=== PATIENT | female | born 1980 | race American Indian/Alaskan Native ===

== ENCOUNTER 2024-06-02 09:23 | Outpatient (CLI) | payer OTHER ==
[2024-06-02 10:53] LABS: HEMATOCRIT 32.4 % (36.0-45.00); HEMOGLOBIN 10.8 g/dL (12.0-15.00); MEAN CORPUSCULAR HEMOGLOBIN 28.6 pg (27.00-32.0); MEAN CORPUSCULAR HGB CONC 33.3 g/dl (32.0-36.0); PLATELET COUNT 271 K/uL (150-450); RED BLOOD COUNT 3.77 M/uL (4.00-6.00); RED CELL DISTRIBUTION WIDTH 13.9 % (11.5-14.5)
[2024-06-02 11:17] LABS: URINE APPEARANCE Clear; URINE BILIRRUBIN Negative (NEGATIVE); URINE BLOOD Large; URINE COLOR Dark Yellow; URINE GLUCOSE Negative (NEGATIVE); URINE KETONE Negative (NEGATIVE); URINE LEUKOCYTE Trace; URINE NITRATE Negative; URINE PROTEIN 30 (NEGATIVE)
[2024-06-02 11:22] LABS: PARTIAL THROMBOPLASTIN TIME 28.3 SECONDS (22.0-34.0); PROTHROMBIN TIME 10.9 SECONDS (9.0-11.5)
[2024-06-02 11:24] LABS: URINE CAST 0.29 uL (0.0-1.40); URINE EPITHELIAL CELLS 7.1 uL (0.0-38.8); URINE RBC 5179.2 uL (0.0-20.8); URINE WBC 13.6 uL (0.0-23.2)
[2024-06-02 11:27] LABS: ALBUMIN 3.7 gm/dL (3.4-5.0); BILIRUBIN TOTAL 0.63 mg/dL (0.3-1.2); CALCIUM 8.5 mg/dL (8.5-10.1); CREATININE SERUM 0.67 mg/dL (0.55-1.02); GFR 94.76; GLOBULINA 3.7 G/DL (2.4-3.5); POTASSIUM 3.86 mEq/L (3.5-5.1); TOTAL PROTEIN 7.4 gm/dL (6.4-8.2)
== END 2024-06-02 14:03 | disposition home or self-care (01) ==
LOC: LAB 09:23
PROVIDERS: ATTEND Obstetrics & Gynecology
DX: N91.1 Secondary amenorrhea (principal); R07.9 Chest pain, unspecified; R05.9 Cough, unspecified

== ENCOUNTER 2024-06-06 12:24 | Outpatient (CLI) | payer OTHER ==
[2024-06-06] MEDS ORDERED: COZAAR50 MG PO (15:20)
[2024-06-06] MEDS ORDERED: FLUVOXAMINE MA100 M1 PO (15:30)
== END 2024-06-06 12:26 | disposition home or self-care (01) ==
LOC: MAMO-SONO 12:24
PROVIDERS: ATTEND Obstetrics & Gynecology
DX: N60.11 Diffuse cystic mastopathy of right breast (principal)

== ENCOUNTER 2024-06-06 15:27 | Inpatient (IN) | payer OTHER ==
[~2024-06-06] VITALS: Ht 172.7 cm; Wt 90.7 kg
[~2024-06-06 15:27] MED LIST: COZAAR50 MG PO
[2024-06-06] MEDS ORDERED: FLUVOXAMINE MA100 M1 PO (15:30)
[2024-06-07] MEDS ORDERED: POVIDONE-IODINE 118 ML BOTT TOP ONE (13:45)
[2024-06-07] MEDS ORDERED: CLINDAMYCIN PHOSPHATE 150 MG/ML (900mg) IV ONE (13:45)
[2024-06-07] MEDS ORDERED: SUGAMMADEX SODIUM 200 MG/2 ML VIAL IV ONE (14:08)
[2024-06-07] MEDS ORDERED: RINGERS SOLUTION,LACTATED 1,000 ML IV SCH (14:30)
[2024-06-07] MEDS ORDERED: MORPHINE SULFATE 4 MG/ML CARTRIDGE IV PRN (14:30)
[2024-06-07] MEDS ORDERED: MORPHINE SULFATE 4 MG/ML VIAL IV ONE ×2 (15:50→16:20)
[2024-06-07] MEDS ORDERED: ONDANSETRON HCL 2 MG/ML VIAL IM PRN (17:00)
[2024-06-07] MEDS ORDERED: hydrALAZINE HCL 20 MG VIAL ONE (17:39)
[2024-06-07] MEDS ORDERED: hydrALAZINE HCL 20 MG VIAL IV ONE (17:45)
[2024-06-07] MEDS ORDERED: ACETAMINOPHEN 325 MG TABLET PO SCH (18:00)
[2024-06-07] MEDS ORDERED: hydrALAZINE HCL 20 MG VIAL IV PRN (18:00)
[2024-06-07] MEDS ORDERED: LOSARTAN POTASSIUM 50 MG TABLET PO NR (18:45)
[2024-06-07] MEDS ORDERED: LOSARTAN/HYDROCHLOROTHIAZIDE 1 UDTAB TABLET PO NR (19:00)
[2024-06-07 19:38] VITALS: BP 143/76
[2024-06-08 00:23] VITALS: BP 139/76
[2024-06-08 05:00] VITALS: BP 146/76
[2024-06-08 08:26] VITALS: BP 116/62
[2024-06-08] MEDS ORDERED: ENOXAPARIN SODIUM 40 MG/0.4 ML SYRINGE SUBCUTANEO SCH (09:00)
[2024-06-08] MEDS ORDERED: LOSARTAN POTASSIUM 50 MG TABLET PO SCH ×2 (09:00)
[2024-06-08 11:12] LABS: HEMATOCRIT 30.4 % (36.0-45.00); HEMOGLOBIN 9.9 g/dL (12.0-15.00); MEAN CELL VOLUME 86.2 fL (80.00-100.00); MEAN CORPUSCULAR HEMOGLOBIN 28.1 pg (27.00-32.0); MEAN CORPUSCULAR HGB CONC 32.6 g/dl (32.0-36.0); PLATELET COUNT 278 K/uL (150-450); RED BLOOD COUNT 3.52 M/uL (4.00-6.00); RED CELL DISTRIBUTION WIDTH 14.2 % (11.5-14.5)
[2024-06-08 16:41] VITALS: BP 140/88
[2024-06-09] VITALS: BP 145/80
[2024-06-09] MEDS ORDERED: OxyCODONE HCL 5 MG TABLET (ROXICODONE) PO PRN (06:00)
[2024-06-09 08:25] VITALS: BP 93/59
== END 2024-06-09 09:59 | disposition home or self-care (01) | DRG 743 ==
LOC: OB/GYN 06-07 06:28 → O/R 06-07 06:28 → OB/GYN 06-07 14:44
PROVIDERS: ADMIT Obstetrics & Gynecology; ATTEND Obstetrics & Gynecology
PROC: 0DNW0ZZ Release Peritoneum, Open Approach (ICD-10-PCS; 2024-06-07)
PROC: 0UT90ZL Resection of Uterus, Supracervical, Open Approach (ICD-10-PCS; principal; 2024-06-07 15:00)
DX: D25.2 Subserosal leiomyoma of uterus (principal); N92.0 Excessive and frequent menstruation with regular cycle; N83.02 Follicular cyst of left ovary; N83.01 Follicular cyst of right ovary